=== PATIENT | male | born 1955 | race Caucasian/White ===

== ENCOUNTER 2024-04-14 19:09 | Emergency (ER) | payer MEDICARE, SELFPAY ==
[2024-04-14 19:14] VITALS: BP 131/87
--- NOTE | 2024-04-14 20:35 | ED.MUSCINJ ---
HPI-Injury
General
Chief Complaint: Musculo-Skeletal Complaint
Source: patient
Exam Limitations: none
Time Seen by Provider: 04/14/24 20:02
Nursing documentation reviewed up to this point in time: agreed with
Travel History
Have you had any contact with someone who has COVID-19?: No
Do you have any symptoms of coronavirus? Fever > 100 degrees, chills, cough, shortness of breath, sore throat, loss of taste or smell, muscle aches, or headache?: No
History of Present Illness-Injury
Initial Injury comments:
69-year-old male states he was rushing to get into the post office before closing at 5:00 when he tripped and fell in the parking lot injuring his left fifth finger. Finger is lacerated. He denies hitting his head or any other injury. Last
tetanus immunization was 4 years ago.
Past History
Past History
ED Past Medical History: [place]
ED Past Surgical History: Cardiac (Stent)
Social History
Tobacco: Non-smoker
Alcohol: None
Personal:
Living: with family
Employment: Employed (Physician)
Review of Systems
Review of Systems
Allergies reviewed?: Yes
All Other Systems: ROS reviewed and negative except as documented in HPI and ROS
Skin: Reports other (Laceration left fifth finger)
Neurological: Denies numbness
Musculoskeletal Injury Exam
Musculoskeletal Injury Exam
Right Volar Fifth Finger(s):
Pain with Movement?: Mild
Tender to palpation?: Mild
Soft tissue swelling?: None
External deformity and angulation?: None
Joint instability?: No
Malalignment/deformity?: No
Range of motion: Full
Distal skin color and temperature: normal-warm & good color
Capillary Refill: normal
Normal distal neurovascular exam?: Yes
Skin Exam
Laceration
Left fifth finger palmar aspect between DIP and MCP joints:
Length in cm: 2.5
Orientation: vertical
Type of Laceration: simple
Any active bleeding?: low grade venous oozing
Distal skin color and temperature: normal-warm & good color
Normal distal neurovascular exam: Yes
Range of motion: full
Phy Exam
Physical Exam
Physical Exam:
PHYSICAL EXAMINATION:
General: no apparent distress, not acutely ill
Neuro: alert and oriented.
Psychiatric: well kept. interactive and cooperative
Musculoskeletal: Moves with ease
Skin: Warm, pink. Few deep clean abrasions of the hand and wrist
Injury Course
Orders/Labs/Results
Orders:
Orders
04/14/24 19:16
CR Hand - Left Min 3 Views Urgent
Reason For Exam: injury
Procedures
Laceration Closure
Left Palmar Fifth Finger(s):
Status of Wound: clean
Size of Wound in cm: 2.5
Description of Wound Edges: sharp
Preparation: cleaned with saline
Anesthesia: Marcaine and [facility]
Revision/Debridement: minor revision
Wound exploration: explored to base- no FB and no tendon involvement (Tendon is completely visible, no interruption in the surface of the tendon)
Type of Closure: single layer closure
Skin Closure Material: 4-0 prolene
Number of sutures: 7
Additional information:
Antibiotic ointment, nonstick and gauze dressing applied
MDM/Problems Addressed
MDM/Problems Addressed:
69-year-old male states he was rushing to get into the post office before closing at 5:00 when he tripped and fell in the parking lot injuring his left fifth finger. Finger is lacerated. He denies hitting his head or any other injury. Last
tetanus immunization was 4 years ago.
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
Flexor tendon visible, no damage, full ROM
*Critical Care Note
Total Time (30-74mins, 75-104mins- exclusive of procedures): Not Applicable
ED Attending Note
-
Portions of this chart may have been created with voice recognition software.� Occasional wrong word or��sound alike� substitutions may have occurred due to the inherent limitations of voice recognition software.
Discharge Plan
Departure
Patient Disposition: Home (Routine Discharge)
Date of Disposition: 04/14/24
Time of Disposition: 20:45
Patient with high blood pressure during this ER visit?: No
Condition: Good
Discharge Problem:
Fall from slip, trip, or stumble, Laceration of finger of left hand
Instructions: Laceration Repair With Stitches ED
Prescriptions:
No Action
atorvastatin 40 MG tablet
40 mg PO QPM 30 Days Qty: 30 0RF
aspirin 81 MG tablet,chewable
81 mg PO DAILY 30 Days Qty: 30 0RF
ticagrelor [Brilinta] 90 MG tablet
90 mg PO BID 30 Days Qty: 60 0RF
Referrals:
UNKNOWN - PT DOES,NOT KNOW [Family Provider] -
Activity Restrictions/Additional Instructions:
As we discussed, remove the sutures in 12-24 days.
Keep the wound clean, dry and covered except for bathing, until well healed.
Interventions
Interventions:
*Risk Screen - Suicide Last Done: 04/14/24 19:14
*General Assessment Last Done: 04/14/24 19:14
*Neglect/Abuse Screening Last Done: 04/14/24 19:14
*Nursing Disposition Last Done: 04/14/24 21:36
ED-Musculoskeletal Assessment Last Done: 04/14/24 20:35
Discharge Date and Time
Discharge Date/Time: 04/14/24 21:36
Print Language: ARABIC
--- NOTE | 2024-04-18 16:51 | ED.ADDNOTE ---
ED Addendum
ED Addendum
ED Addendum Note:
Pt stopped by for wound check. 5th finger is reddened, mild to moderately swollen, no drainage, Brisk capillary refill, distal sensation intact. He has been taking Cefadroxil 1 gm BID for past 4 days. Area is tender but not exquisitely. Tendon
function intact but limited due to swelling. Deep abrasion on dorsum with yellow eschar, red around the edges. No lymphangitis with either wound. Pt given rx for Bactrim to add to the Cephalosporin. Informed that 1000 mg daily is adequate. He is a
physician and put himself on it. He was given a splint for the finger and referred to hand specialist Dr. Miranda.
== END 2024-04-14 21:36 | disposition home or self-care (01) ==
LOC: EMR 19:09
PROVIDERS: EMERGENCY PHYSICIAN Emergency Medicine
DX: S61.217A Laceration without foreign body of left little finger without damage to nail, initial encounter (principal); W01.0XXA Fall on same level from slipping, tripping and stumbling without subsequent striking against object, initial encounter; Y92.481 Parking lot as the place of occurrence of the external cause; I25.2 Old myocardial infarction; Z86.16 Personal history of COVID-19; Z95.5 Presence of coronary angioplasty implant and graft; Z79.82 Long term (current) use of aspirin
CPT/HCPCS: 99283; 12001; 73130

== ENCOUNTER → 2024-05-15 14:07 | Outpatient (REF) | payer MEDICARE, SELFPAY | LOC: HWRAD 14:07 | PROVIDERS: ATTENDING PHYSICIAN Family Medicine; REFERRING PHYSICIAN Orthopaedic Surgery | DX: S62.307A Unspecified fracture of fifth metacarpal bone, left hand, initial encounter for closed fracture (principal); M54.2 Cervicalgia | CPT/HCPCS: 72050; 73130 ==

== ENCOUNTER → 2024-05-23 09:37 | Outpatient (REF) | payer MEDICARE, SELFPAY | LOC: MRI 09:37 | PROVIDERS: ATTENDING PHYSICIAN Family Medicine | DX: M43.12 Spondylolisthesis, cervical region (principal); M50.30 Other cervical disc degeneration, unspecified cervical region | CPT/HCPCS: 72141 ==

== ENCOUNTER → 2024-05-26 17:06 | Outpatient (REF) | payer MEDICARE, SELFPAY | LOC: MRI 3T 17:06 | PROVIDERS: ATTENDING PHYSICIAN Family Medicine | DX: R97.20 Elevated prostate specific antigen [PSA] (principal) | CPT/HCPCS: 72197; A9575 ==

== ENCOUNTER → 2024-09-28 11:23 | Outpatient (REF) | payer MEDICARE, SELFPAY | LOC: HWRAD 11:23 | PROVIDERS: ATTENDING PHYSICIAN Family Medicine; REFERRING PHYSICIAN Orthopaedic Surgery | DX: M79.642 Pain in left hand (principal); M25.559 Pain in unspecified hip; M54.50 Low back pain, unspecified | CPT/HCPCS: 72114; 73130; 73523 ==

== ENCOUNTER 2025-09-20 06:27 | Day surgery (SDC) | payer MEDICARE, SELFPAY | END 2025-09-20 12:22 | disposition home or self-care (01) | LOC: GI 06:27 | PROVIDERS: ATTENDING PHYSICIAN Internal Medicine | DX: Z12.11 Encounter for screening for malignant neoplasm of colon (principal); K64.8 Other hemorrhoids; K57.30 Diverticulosis of large intestine without perforation or abscess without bleeding; K63.5 Polyp of colon; Z86.0101 Personal history of adenomatous and serrated colon polyps; Z98.890 Other specified postprocedural states; D12.0 Benign neoplasm of cecum; D12.2 Benign neoplasm of ascending colon | CPT/HCPCS: 45385; 45380; 88305 ==